=== PATIENT | male | born 1990 | race African-American/Black ===

== ENCOUNTER 2017-01-16 17:53 | Emergency (ER) | payer OTHER ==
[~2017-01-16] VITALS: Wt 143.0 kg
[2017-01-16] MEDS ORDERED: SULF1TAB31 PO (18:27)
[2017-01-16] MEDS ORDERED: HYDR25SU23 PR (18:27)
[2017-01-16] MEDS ORDERED: CEPH-443 PO (18:27)
--- NOTE | 2017-01-16 18:51 | ERD ---
ER Documentation Chief Complaint Date/Time DATE: 01/16/17 TIME: 18:36 Chief Complaint STATED REDNESS IN RECTAL AREA FOR 2 DAYS. NO BLEEDING NOTED. NO FEVER HPI Patient is a 26-year-old male who presents to the ED with redness and pain around his rectal area for 2 days. He states that he has been living in his car and sleeping naked on his feet and feels that he might have gotten an infection. He denies fever or chills. He states that he had something like this similar in the past, 2010. He denies pain with bowel movements. Denies blood in his stools. Denies abdominal pain, nausea, vomiting or diarrhea. Denies leg pain. Denies chest pain, cough, shortness of breath or difficulty breathing. ROS All systems reviewed and are negative except as per history of present illness. Medications Home Meds Active Scripts Hydrocortisone Acetate (Anusol-Hc) 25 Mg Supp.rect, 1 SUPP AK BID Y for HEMORROID PAIN/ITCHING, #12 SUPP.RECT Prov:REEMA MCCORMICK PA-C 01/16/17 Cephalexin* (Keflex*) 500 Mg Capsule, 500 MG PO QID for 5 Days, CAP Prov:REEMA MCCORMICK-C 01/16/17 Sulfamethoxazole/Trimethoprim* (Bactrim Ds* Tablet) 1 Each Tablet, 1 TAB PO BID , #14 TAB Prov:REEMA MCCORMICK-C 01/16/17 PMhx/Soc History of Surgery: No Anesthesia Reaction: No Hx Neurological Disorder: No Hx Respiratory Disorders: No Hx Cardiac Disorders: No Hx Psychiatric Problems: No Hx Miscellaneous Medical Probl: No Hx Alcohol Use: No Hx Substance Use: No Hx Tobacco Use: No Smoking Status: Never smoker FmHx Family History: No coronary disease, No diabetes, No other Physical Exam Vitals Physical Exam GENERAL: Well-developed, well-nourished male. Appears in no acute distress. HEAD: Normocephalic, atraumatic. EYES: Pupils are equally reactive bilaterally. EOMs grossly intact. No conjunctival erythema. ENT: Moist mucous membranes. No uvula deviation. No kissing tonsils. No exudates. NECK: Supple. No lymphadenopathy or thyromegaly. No meningismus. negative kernig. negative brudinski. LUNG: Clear to auscultation bilaterally. No rhonchi, wheezing, rales or coarse breath sounds. HEART: Regular rate and rhythm. No murmurs, rubs or gallops. ABDOMEN: No scars, ecchymosis or rashes noted. Soft, nontender, and nondistended. Positive bowel sounds in all four quadrants. No rebound tenderness , no guarding. (-) McBurneys point tenderness. No CVA tenderness. BACK: No midline tenderness. :no tenderness or redness around rectum. external hemorrhoid visible. Nontender. Extremities: Equal pulses bilaterally. No peripheral clubbing, cyanosis or edema. No unilateral leg swelling. NEUROLOGIC: Alert and oriented. Moving all four extremities. 5/5 strength in all extremities. Normal speech. Steady gait. SKIN: Normal color. Warm and dry. No rashes or lesions. Capillary refill < 2 seconds Procedures/MDM ER COURSE: I kept the patient and/or family informed of laboratory and diagnostic imaging results throughout the emergency room course. MEDICAL DECISION MAKING: This is a 26-year-old male who presents with rectal pain and discomfort x 2 days. Vital signs were reviewed. Patient is afebrile. Patient is not hypoxic. Patient is not toxic or ill-appearing. Patient likely has hemorrhoids versus cellulitis. I will be treating the patient prophylactically. Differential diagnosis includes but is not limited to for abscess, perirectal abscess, perianal abscess, fistula, thrombosed hemorrhoids, external hemorrhoids. DISCHARGE: At this time, patient is stable for discharge and outpatient management with no new complaints during the ER course. Patient was sent home with Anusol, Keflex and Bactrim and to do warm soaks. Return in 2-3 days for recheck. Return earlier if symptoms worsen.. Patient will be discharged home with instructions to recheck for new or worsening symptoms such as fever, nausea, weakness, LOC and to follow up with primary care in the next 1-2 days. Patient was advised to return to the ER for any new or worsening symptoms. Plan was discussed and patient and/or family understands and agrees. Home instructions were given. Departure Diagnosis: Primary Impression: Cellulitis Site of cellulitis: buttock Qualified Code: L03.317 - Cellulitis of buttock Additional Impression: Hemorrhoid Hemorrhoid type: unspecified Qualified Code: K64.9 - Hemorrhoids, unspecified hemorrhoid type Condition: Stable Patient Instructions: Cellulitis, Hemorrhoids Referrals: [facility] YOU HAVE RECEIVED A MEDICAL SCREENING EXAM AND THE RESULTS INDICATE THAT YOU DO NOT HAVE A CONDITION THAT REQUIRES URGENT TREATMENT IN THE EMERGENCY DEPARTMENT. FURTHER EVALUATION AND TREATMENT OF YOUR CONDITION CAN WAIT UNTIL YOU ARE SEEN IN YOUR DOCTORS OFFICE WITHIN THE NEXT 1-2 DAYS. IT IS YOUR RESPONSIBILITY TO MAKE AN APPOINTMENT FOR FOL- CARE. IF YOU HAVE A PRIMARY DOCTOR --you should call your primary doctor and schedule an appointment IF YOU DO NOT HAVE A PRIMARY DOCTOR YOU CAN CALL OUR PHYSICIAN REFERRAL HOTLINE AT IF YOU CAN NOT AFFORD TO SEE A PHYSICIAN YOU CAN CHOSE FROM THE FOLLOWING [facility] [address] [facility]. [facility] [address] [facility]. [facility] [address] [facility] [facility] [address] [facility] [facility] [address] [facility]. [facility] [address] Additional Instructions: Call your primary care doctor TOMORROW for an appointment during the next 1-2 days.See the doctor sooner or return here if your condition worsens before your appointment time. USE WARM SOAKS AND COMPRESSES REEMA MCCORMICK PA-C January 16, 2017 18:46 appointment time. USE WARM SOAKS AND COMPRESSES REEMA MCCORMICK PA-C January 16, 2017 18:46
== END 2017-01-16 18:42 | disposition home or self-care (01) ==
LOC: FTE 17:53
DX: L03.317 Cellulitis of buttock (principal); K64.4 Residual hemorrhoidal skin tags
CPT/HCPCS: 99284